=== PATIENT | male | born 1945 | race Caucasian/White ===

== ENCOUNTER 2016-12-01 15:53 | Emergency (ER) | payer OTHER, MEDICARE ==
[2016-12-01 16:01] VITALS: BP 148/76; BMI 22.8
--- NOTE | 2016-12-01 16:48 | DR.GENAD ---
HPI - PCP Primary Care Physician: NAVARRO - Complaint/Symptoms Chief Complaint Doctors Comments: A neighbor brought patient to ED for evaluation. He reports that patient was not talking in his usual manner today. He reports that he fell earlier today. Patient is alert in no acute distress Chief Complaint:: PATIENT HAS BEEN CONFUSED THIS MORNING. AROUND 4 AM TO DAY LIGHT. - Source History Provided: Patient, Family Member - Mode of Arrival Mode of Arrival: Ambulatory - Timing Onset of Chief Complaint: 12/01/16 PMH - PMH Past Medical History: No Past Surgical History: Yes Surgical History: Unknown - Family History History of Family Medical Conditions: No - Social History Does patient currently use any type of tobacco product: No Have you used tobacco products in the last 12 months: No Type of Tobacco Use: None Does any household member use tobacco: No Alcohol Use: None Do you use any recreational Drugs:: No Lives With: Family Lives Where: Home - infectious screening In the last 2 months have you had wt loss of >10#?: NO Have you had fever, night sweats or hemotysis?: No Have you traveled outside the country in the last 6 months?: No Isolation: Standard ROS - Review of Systems Eyes: No Symptoms Reported ENTM: No Symptoms Reported Respiratoy: No Symptoms Reported Cardiovascular: No Symptoms Reported Gastrointestinal/Abdominal: No Symptoms Reported Genitourinary: No Symptoms Reported Neurological: No Symptoms Reported Musculoskeletal: No Symptoms Reported Integumentary: No Symptoms Reported Hematologic/Lymphatic: No Symptoms Reported Endocrine: No Symptoms Reported Psychiatric: No Symptoms Reported All Other Systems: Reviewed and Negative PE - Vital Signs Vitals: Pulse Rate 76 Respiratory Rate 20 Blood Pressure 148/76 O2 Sat by Pulse Oximetry 99 - General Limitations: No Limitations General Appearance: Alert, In No Apparent Distress - Head Head Exam: Normal Inspection, Atraumatic - Eyes Eye exam: Normal Appearance, PERRL, EOMI - ENT ENT Exam: Normal Exam External Ear Exam: Normal External Inspection TM/Canal Exam: Bilateral Normal Nose Exam: Normal Nose Exam Mouth Exam: Normal Inspection Throat Exam: Normal Inspection - Neck Neck Exam: Normal Inspection, Full ROM - Chest Chest Inspection: Normal Inspection - Respiratory Respiratory Exam: Normal Lung Sounds Bilat Respiratory Exam: Bilateral Clear to Auscultation - Cardiovascular Cardiovascular Exam: Regular Rate, Normal Rhythm - Abdominal Exam Abdominal Exam: Normal Inspection, Normal Bowel Sounds Abdominal Tenderness: negative: RUQ, RLQ, LUQ, LLQ, Epigastrium, Suprapubic, Diffuse, Mild, Moderate, Severe, Other - Extremities Extremities Exam: Normal Inspection - Back Back Exam: Normal Inspection, Full ROM - Neurologic Neurological Exam: Alert, Oriented X3, CN II-XII Intact - Psychiatric Psychiatric Exam: Normal Affect, Normal Mood - Skin Skin Exam: Warm, Dry, Intact Course - Reevaluation 1st: Improved ROR - Labs Reviewed Result Diagrams: 12/01/16 17:00 12/01/16 17:00 Laboratory: WBC 6.4 X10^3/uL (3.6-10.0) 12/01/16 17:00 RBC 4.54 X10^6/uL (4.7-6.0) L 12/01/16 17:00 Hgb 13.9 g/dL (13.5-18.0) 12/01/16 17:00 Hct 40.6 % (42.0-54.0) L 12/01/16 17:00 MCV 89.4 fL (80.0-100.0) 12/01/16 17:00 MCH 30.7 pg (27.0-34.0) 12/01/16 17:00 MCHC 34.3 g/dL (33.0-35.0) 12/01/16 17:00 RDW 14.3 % (11.6-16.5) 12/01/16 17:00 Plt Count 178 X10^3/uL (150.0-450.0) 12/01/16 17:00 MPV 8.3 fL (7.4-11.0) 12/01/16 17:00 Neut % 70.8 % (42.0-75.0) 12/01/16 17:00 Lymph % 21.7 % (21.0-51.0) 12/01/16 17:00 [place] % 5.5 % (0.0-13.0) 12/01/16 17:00 Eos % 0.9 % (0.9-2.9) 12/01/16 17:00 Baso % 1.1 % (0.2-1.0) H 12/01/16 17:00 Neut # 4.5 x10^3/uL (2.2-4.8) 12/01/16 17:00 Lymph # 1.4 X10^3/uL (1.3-2.9) 12/01/16 17:00 [place] # 0.4 x10^3/uL (0.3-0.8) 12/01/16 17:00 Eos # 0.1 x10^3/uL (0.0-0.2) 12/01/16 17:00 Baso # 0.1 X10^3/uL (0.0-0.1) 12/01/16 17:00 Absolute Nucleated RBC 0.0 /100WBC 12/01/16 17:00 Sodium 142 mmol/L (136-145) 12/01/16 17:00 Corrected Sodium TNP 12/01/16 17:00 Potassium 3.9 mmol/L (3.5-5.1) 12/01/16 17:00 Chloride 104 mmol/L (98-107) 12/01/16 17:00 Carbon Dioxide 31.5 mmol/L (21-32) 12/01/16 17:00 BUN 18 mg/dL (7-18) 12/01/16 17:00 Creatinine 0.98 mg/dL (0.70-1.30) 12/01/16 17:00 Est GFR (MDRD) Af Amer > 60 (>60) 12/01/16 17:00 Est GFR (MDRD) Non-Af > 60 (>60) 12/01/16 17:00 Glucose 104 mg/dL (65-99) H 12/01/16 17:00 Calcium 8.6 mg/dL (8.5-10.1) 12/01/16 17:00 Corrected Calcium TNP 12/01/16 17:00 Total Bilirubin 0.50 mg/dL (0.2-1.0) 12/01/16 17:00 AST 23 Units/L (15-37) 12/01/16 17:00 ALT 27 Units/L (12-78) 12/01/16 17:00 Alkaline Phosphatase 66 Units/L (46-116) 12/01/16 17:00 Total Protein 7.2 g/dL (6.4-8.2) 12/01/16 17:00 Albumin 3.8 g/dL (3.4-5.0) 12/01/16 17:00 Globulin 3.4 g/dL (2.5-4.5) 12/01/16 17:00 Albumin/Globulin Ratio 1.1 Ratio (1.1-2.1) 12/01/16 17:00 - XRAY XRAY Interpreted by: Radiologist (CT Brain:No significant intracranial abnormality identified.) - Diagnosis Discharge Problem: TIA (transient ischemic attack) Qualifiers: Transient cerebral ischemia type: unspecified Qualified Code(s): G45.9 - Transient cerebral ischemic attack, unspecified - Discharge Plan Condition: Stable - Follow ups/Referrals Follow ups/Referrals: NFD,None [Primary Care Provider] - 3 days - Instructions
[2016-12-01 17:04] LABS: BASOPHILS # (AUTO) 0.1 X10^3/uL (0.0-0.1); BASOPHILS % (AUTO) 1.1 % (0.2-1.0); EOSINOPHILS # (AUTO) 0.1 x10^3/uL (0.0-0.2); EOSINOPHILS % (AUTO) 0.9 % (0.9-2.9); HEMATOCRIT 40.6 % (42.0-54.0); HEMOGLOBIN 13.9 g/dL (13.5-18.0); LYMPHOCYTES # (AUTO) 1.4 X10^3/uL (1.3-2.9); LYMPHOCYTES % (AUTO) 21.7 % (21.0-51.0); MEAN CORPUSCULAR HEMOGLOBIN 30.7 pg (27.0-34.0); MEAN CORPUSCULAR HGB CONC 34.3 g/dL (33.0-35.0); MEAN CORPUSCULAR VOLUME 89.4 fL (80.0-100.0); MEAN PLATELET VOLUME 8.3 fL (7.4-11.0); MONOCYTES # (AUTO) 0.4 x10^3/uL (0.3-0.8); MONOCYTES % (AUTO) 5.5 % (0.0-13.0); NEUTROPHILS # (AUTO) 4.5 x10^3/uL (2.2-4.8); NEUTROPHILS % (AUTO) 70.8 % (42.0-75.0); PLATELET COUNT 178 X10^3/uL (150.0-450.0); RED BLOOD COUNT 4.54 X10^6/uL (4.7-6.0); RED CELL DISTRIBUTION WIDTH 14.3 % (11.6-16.5); WHITE BLOOD COUNT 6.4 X10^3/uL (3.6-10.0)
[2016-12-01 17:18] LABS: ALANINE AMINOTRANSFERASE 27 Units/L (12-78); ALBUMIN 3.8 g/dL (3.4-5.0); ALKALINE PHOSPHATASE 66 Units/L (46-116); ASPARTATE AMINO TRANSFERASE 23 Units/L (15-37); BLOOD UREA NITROGEN 18 mg/dL (7-18); CALCIUM 8.6 mg/dL (8.5-10.1); CARBON DIOXIDE 31.5 mmol/L (21-32); CHLORIDE 104 mmol/L (98-107); CREATININE 0.98 mg/dL (0.70-1.30); GLUCOSE 104 mg/dL (65-99); SODIUM 142 mmol/L (136-145); TOTAL PROTEIN 7.2 g/dL (6.4-8.2); eGFR BLACK RACES > 60 (>60); eGFR NON BLACK RACES > 60 (>60)
--- NOTE | 2016-12-01 17:36 | CT ---
HISTORY: Altered mental status Study: CT brain without contrast Comparison: None Technique: Multiple axial images of the brain were obtained from the skull base to the vertex without administr ation of IV contrast. Coronal and sagittal reformats were performed. Dose reduction procedures were used with MA/kv adjusted for body size. Findings: No acute intraparenchymal hemorrhage or mass can be identified. No extra-axial fluid collections ar e seen. No alteration in the attenuation of the brain parenchyma can be identified to suggest acute or subacute ischemic change. The ventricular system is symmetric and nondilated. The extracranial structures are grossly unremarkable. 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 IMPRESSION: No significant intracranial abnormality identified Reported By:
== END 2016-12-01 17:58 | disposition home or self-care (01) ==
LOC: ER 15:53
DX: G45.9 Transient cerebral ischemic attack, unspecified (principal)
CPT/HCPCS: 36415; 70450; 80053; 85025; 93005; 93010; 99282; 99283